=== PATIENT | male | born 1975 | race Two or more races ===

== ENCOUNTER 2019-09-29 11:24 | Emergency (ER) | payer OTHER ==
[~2019-09-29] VITALS: Ht 180.3 cm; Wt 81.6 kg
[2019-09-29] MEDS ORDERED: NEXIUM2.5 MG PO (11:34)
[2019-09-29] MEDS ORDERED: KETO10TA2 PO (13:56)
== END 2019-09-29 15:00 | disposition home or self-care (01) ==
LOC: ER 11:24
DX: M79.644 Pain in right finger(s) (principal)